=== PATIENT | female | born 1990 | race Caucasian/White ===

== ENCOUNTER 2021-07-24 20:27 | Emergency (ER) | payer BC, OTHER ==
[~2021-07-24] VITALS: Ht 165.1 cm; Wt 56.7 kg
[2021-07-24] MEDS ORDERED: ONDANSETRON 4 MG TAB.RAPDIS ONE (20:44)
[2021-07-24] MEDS ORDERED: HYDROCODONE/APAP 5/325MG TABLET ONE (20:44)
--- NOTE | 2021-07-24 20:50 | NUR ---
JONATHAN GRISSOM AT BEDSIDE FOR RECTAL EXAM EX CHEF BY BENJAMÍN RAMÍREZ
[2021-07-24] MEDS ORDERED: HYDROCODONE/APAP 5/325MG TABLET PO ONE (21:00)
[2021-07-24] MEDS ORDERED: ONDANSETRON 4 MG TAB.RAPDIS SL ONE (21:00)
[2021-07-24] MEDS ORDERED: IV NS 0.9% 1,000 ML BAG IV ONE (21:00)
[2021-07-24] MEDS ORDERED: TDAP [DIPH/PERTUSSIS/TET] 0.5 ML VIAL IM ONE (21:00)
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
[2021-07-24 21:29] LABS: BASOPHILS % (AUTO) 0.4 % (0.0-2.0); EOSINOPHILS % (AUTO) 2.4 % (0.0-6.0); HEMATOCRIT 39 % (33-45); LYMPHOCYTES # (AUTO) 2.2 K/uL (0.8-4.8); LYMPHOCYTES % (AUTO) 23.7 % (20.0-44.0); MEAN CORPUSCULAR HGB CONC 34 g/dl (31.0-36.0); MEAN CORPUSCULAR VOLUME 92 fL (82-100); MONOCYTES # (AUTO) 0.7 K/uL (0.1-1.30); MONOCYTES % (AUTO) 7.8 % (2.0-12.0); NEUTROPHILS % (AUTO) 65.7 % (43.0-81.0); PLATELET COUNT (AUTO) 187 K/uL (150-450); RED BLOOD CELL COUNT(AUTO) 4.21 MIL/uL (4.0-5.2); WHITE BLOOD COUNT (AUTO) 9.1 K/uL (4.3-11.0)
[2021-07-24 21:44] LABS: CALCIUM, SERUM 7.8 mg/dL (8.5-10.1); CREATININE 0.7 mg/dL (0.6-1.3); POTASSIUM 3.3 mmol/L (3.5-5.1)
--- NOTE | 2021-07-24 22:05 | NUR ---
TAKEN TO CT
[2021-07-24] MEDS ORDERED: CT SWABBABLE VALVE TRANS SET 1 EA INFUS.SET MC ONE (22:13)
[2021-07-24] MEDS ORDERED: IOHEXOL-300 100 ML VIAL IV ONE (22:13)
[2021-07-24] MEDS ORDERED: IV NS 0.9% 250 ML IV ONE (22:14)
--- NOTE | 2021-07-24 23:21 | NUR ---
PAGED DR RODRIGUEZ
[2021-07-24] MEDS ORDERED: POTASSIUM CHLORIDE 20 MEQ TAB.PRT.SR PO ONE (23:30)
--- NOTE | 2021-07-24 23:51 | NUR ---
SPOKE TO MARIE AT [facility] [phone] AND FAXED THE CLINICALS [phone]
[2021-07-25] MEDS ORDERED: PIPERACILLIN /TAZOBACTAM 3.375 G in IV D5W 50 ML IV ONE
--- NOTE | 2021-07-25 00:04 | NUR ---
CALLED [facility] AND SPOKE TO CONI PETERSEN GOT ACCEPTED AT [facility] ER BY DR CASTANEDA. NUMBER FOR REPORT: [phone]
[2021-07-25] MEDS ORDERED: PIPERACILLIN /TAZOBACTAM 3.375 G VIAL IV ONE (00:09)
[2021-07-25] MEDS ORDERED: TDAP [DIPH/PERTUSSIS/TET] 0.5 ML VIAL IM ONE (00:10)
[2021-07-25] MEDS ORDERED: POTASSIUM CHLORIDE 20 MEQ TAB.PRT.SR PO ONE (00:10)
--- NOTE | 2021-07-25 00:15 | NUR ---
[facility] at bedside for wound care
--- NOTE | 2021-07-25 00:34 | NUR ---
[facility] TRAN[facility] IN 75 MIN
--- NOTE | 2021-07-25 00:40 | NUR ---
REPORT GIVEN TO FABRICE
--- NOTE | 2021-07-25 00:44 | NUR ---
[facility] NOT ACCPETING [facility] TRANSPO. [facility] BY [facility]: [id number]
--- NOTE | 2021-07-25 00:55 | NUR ---
NO [facility] TRANSPO AVAILABLE BY [facility]
--- NOTE | 2021-07-25 00:56 | NUR ---
[facility] BY [facility] 1899
--- NOTE | 2021-07-25 00:58 | NUR ---
NO ALS TRANSPO BY [facility]
--- NOTE | 2021-07-25 01:15 | NUR ---
[facility] ETA 1600
[2021-07-25 01:30] LABS: BASOPHILS % (AUTO) 0.2 % (0.0-2.0); EOSINOPHILS % (AUTO) 0.1 % (0.0-6.0); HEMATOCRIT 38 % (33-45); HEMOGLOBIN 13.1 g/dL (11.5-14.8); LYMPHOCYTES # (AUTO) 1.3 K/uL (0.8-4.8); LYMPHOCYTES % (AUTO) 12.6 % (20.0-44.0); MEAN CORPUSCULAR HGB CONC 35 g/dl (31.0-36.0); MEAN CORPUSCULAR VOLUME 90 fL (82-100); MONOCYTES # (AUTO) 0.7 K/uL (0.1-1.30); MONOCYTES % (AUTO) 6.8 % (2.0-12.0); NEUTROPHILS # (AUTO) 8.3 K/uL (1.8-8.9); NEUTROPHILS % (AUTO) 80.3 % (43.0-81.0); PLATELET COUNT (AUTO) 193 K/uL (150-450); RED BLOOD CELL COUNT(AUTO) 4.18 MIL/uL (4.0-5.2); WHITE BLOOD COUNT (AUTO) 10.4 K/uL (4.3-11.0)
--- NOTE | 2021-07-25 02:04 | NUR ---
PT ON PHONE, ATTACHED TO MONITOR, VSS
--- NOTE | 2021-07-25 03:00 | NUR ---
pt used to restroom, needs met
--- NOTE | 2021-07-25 04:12 | NUR ---
REC'D A CALL FROM [facility] ASKING ABOUT AN OVERAL REPORT AND ETA. PT IS AUTHORIZED TO BE TRANSFERRED OVER TO [facility] VIA S. DR PURVIS APPROVED BLS TRANSPORTATION
--- NOTE | 2021-07-25 04:15 | NUR ---
[facility]SP[facility] IN ONE HOUR
[2021-07-25 05:00] VITALS: BP 101/68
--- NOTE | 2021-07-25 05:13 | NUR ---
REPORT GIVEN TO CHARGE NURSE AT [facility] ER. [facility] AT BED SIDE
--- NOTE | 2021-07-25 05:20 | NUR ---
REPORT GIVEN TO EMS
== END 2021-07-25 05:20 | disposition short-term general hospital (02) ==
LOC: ER 20:34
DX: S31.831A Laceration without foreign body of anus, initial encounter (principal); S82.832A Other fracture of upper and lower end of left fibula, initial encounter for closed fracture; V29.49XA Motorcycle driver injured in collision with other motor vehicles in traffic accident, initial encounter; Y92.414 Local residential or business street as the place of occurrence of the external cause; E87.6 Hypokalemia; E83.51 Hypocalcemia; Z20.822 Contact with and (suspected) exposure to COVID-19
CPT/HCPCS: 29515; 36415 ×2; 73590; 74177; 80048; 84702; 85025 ×2; 85730; 86850; 87426; 90471; 90715; 96365; 99291; A6253 ×2; C9803; J2543; J7030; J7050; Q0162; Q9967